=== PATIENT | male | born 1940 | race Caucasian/White ===

== ENCOUNTER 2021-04-17 13:53 | Emergency (ER) | payer MEDICARE, BC ==
[2021-04-17 15:00] VITALS: BP 153/57; PULSE 61
== END 2021-04-17 17:29 | disposition home or self-care (01) ==
LOC: JP.ED 13:53
DX: S80.01XA Contusion of right knee, initial encounter (principal); I25.10 Atherosclerotic heart disease of native coronary artery without angina pectoris; E78.00 Pure hypercholesterolemia, unspecified; I10 Essential (primary) hypertension; I25.2 Old myocardial infarction; K21.9 Gastro-esophageal reflux disease without esophagitis; E11.9 Type 2 diabetes mellitus without complications; E66.9 Obesity, unspecified; Z68.41 Body mass index [BMI] 40.0-44.9, adult; Z88.1 Allergy status to other antibiotic agents; Z88.8 Allergy status to other drugs, medicaments and biological substances; Z79.82 Long term (current) use of aspirin; Z79.899 Other long term (current) drug therapy; W22.09XA Striking against other stationary object, initial encounter
CPT/HCPCS: 73562-26-RT; 73562-RT; 99282; 99283

== ENCOUNTER 2021-07-03 22:58 | Emergency (ER) | payer MEDICARE, BC ==
[2021-07-04 00:14] VITALS: BP 128/51; PULSE 73
== END 2021-07-04 00:50 | disposition home or self-care (01) ==
LOC: JP.ED 22:58
DX: E11.649 Type 2 diabetes mellitus with hypoglycemia without coma (principal); I25.10 Atherosclerotic heart disease of native coronary artery without angina pectoris; I25.2 Old myocardial infarction; E78.00 Pure hypercholesterolemia, unspecified; J45.909 Unspecified asthma, uncomplicated; I10 Essential (primary) hypertension; E66.9 Obesity, unspecified; Z68.39 Body mass index [BMI] 39.0-39.9, adult; Z79.899 Other long term (current) drug therapy; Z79.82 Long term (current) use of aspirin; Z79.4 Long term (current) use of insulin; Z88.8 Allergy status to other drugs, medicaments and biological substances; Z88.1 Allergy status to other antibiotic agents
CPT/HCPCS: 82947; 99282; 99285

== ENCOUNTER 2021-07-20 18:19 | Emergency (ER) | payer MEDICARE, BC ==
[2021-07-20 18:35] VITALS: BP 144/42; PULSE 56
== END 2021-07-20 20:26 | disposition home or self-care (01) ==
LOC: JP.ED 18:19
DX: E87.5 Hyperkalemia (principal); I12.9 Hypertensive chronic kidney disease with stage 1 through stage 4 chronic kidney disease, or unspecified chronic kidney disease; N18.4 Chronic kidney disease, stage 4 (severe); I25.10 Atherosclerotic heart disease of native coronary artery without angina pectoris; I25.2 Old myocardial infarction; E78.00 Pure hypercholesterolemia, unspecified; I10 Essential (primary) hypertension; E11.9 Type 2 diabetes mellitus without complications; E66.9 Obesity, unspecified; Z68.41 Body mass index [BMI] 40.0-44.9, adult; Z79.899 Other long term (current) drug therapy; Z79.82 Long term (current) use of aspirin; Z79.4 Long term (current) use of insulin; Z88.8 Allergy status to other drugs, medicaments and biological substances; Z88.1 Allergy status to other antibiotic agents
CPT/HCPCS: 36415; 80048; 99283; 99284

== ENCOUNTER 2021-10-05 01:05 | Emergency (ER) | payer MEDICARE, BC ==
[2021-10-05] MEDS ORDERED: 50% Dextrose in Water 50 ML Syringe IVPUSH ONE ×3 (01:07→04:19)
[2021-10-05] MEDS ORDERED: Sodium Chloride 0.9% 1,000 ML IV SCH (01:30)
[2021-10-05 01:38] LABS: ESTIMATED GFR 25 mL/min (>60)
[2021-10-05] MEDS ORDERED: Sodium Chloride 23.4% 154 MEQ in Dextrose 10% in Water 1,000 ML IV SCH ×2 (02:00)
[2021-10-05] MEDS ORDERED: 50% Dextrose in Water 50 ML Syringe ONE (02:02)
[2021-10-05] MEDS ORDERED: Dextrose 5%-0.9% NaCl 1,000 ML IV SCH (02:30)
[2021-10-05 04:54] VITALS: BP 174/67; PULSE 67
[2021-10-05] MEDS ORDERED: HYDROmorphone 0.5 MG/0.5 ML Syringe IVPUSH ONE (05:27)
[2021-10-05] MEDS ORDERED: Lidocaine 4% Top Soln 50 ML Bottle TOP ONE (06:10)
[2021-10-05] MEDS ORDERED: Bacitracin Oint 1 GM U/D Packet TOP ONE (06:10)
[2021-10-05] MEDS ORDERED: Lidocaine 4% 5 ML Amp INJECT ONE (06:16)
[2021-10-05] MEDS ORDERED: Lidocaine 1% 20 ML MDV INJECT ONE (06:19)
[2021-10-05] MEDS ORDERED: Lidocaine 1% 5 ML VIAL ONE (06:26)
== END 2021-10-05 07:02 | disposition home or self-care (01) ==
LOC: JP.ED 01:05
DX: S01.111A Laceration without foreign body of right eyelid and periocular area, initial encounter (principal); E11.649 Type 2 diabetes mellitus with hypoglycemia without coma; I25.10 Atherosclerotic heart disease of native coronary artery without angina pectoris; E78.00 Pure hypercholesterolemia, unspecified; E66.9 Obesity, unspecified; I25.2 Old myocardial infarction; I10 Essential (primary) hypertension; Z88.1 Allergy status to other antibiotic agents; Z88.8 Allergy status to other drugs, medicaments and biological substances; Z79.82 Long term (current) use of aspirin; Z68.38 Body mass index [BMI] 38.0-38.9, adult; W19.XXXA Unspecified fall, initial encounter
CPT/HCPCS: 36415; 70450; 70486; 71046; 80053; 82947; 84484; 85025; 93005; 96361; 96374; 96375; 96376; 99285; J1170; J7030

== ENCOUNTER 2022-11-26 10:46 | Inpatient (IN) | payer MEDICARE, BC ==
[2022-11-26] MEDS ORDERED: Glucagon,Human Recombinant 1 MG Vial IM PRN (12:11)
[2022-11-26] MEDS ORDERED: 50% Dextrose in Water 50 ML Syringe IVPUSH PRN (12:11)
[2022-11-26] MEDS ORDERED: Albuterol 0.083% 2.5 MG/3 ML Neb Soln NEB PRN (12:11)
[2022-11-26] MEDS ORDERED: Ondansetron 4 MG/2 ML SDV IV PRN (12:15)
[2022-11-26] MEDS ORDERED: Acetaminophen 325 MG Tab PO PRN (12:15)
[2022-11-26] MEDS ORDERED: Sodium Chloride 0.9% 10 ML Syringe FLUSH PRN (12:15)
[2022-11-26] MEDS ORDERED: Glucose Gel 15 GM in 37.5 GM Tube PO PRN (12:15)
[2022-11-26] MEDS ORDERED: 50% Dextrose in Water 50 ML Syringe IV PRN (12:15)
[2022-11-26] MEDS ORDERED: Polyethylene Glycol 3350 Powder 17 GM Packet PO PRN (12:15)
[2022-11-26] MEDS ORDERED: Piperacillin/Tazobactam/Dext 2.25 GM in Premix Bag 1 BAG IV SCH (12:30)
[2022-11-26] MEDS ORDERED: Piperacillin/Tazobactam 2.25 GM in Sodium Chloride 0.9% 50 ML IV SCH (12:30)
[2022-11-26 12:43] LABS: BASOPHILS PERCENT AUTO 0.4 % (0.1-1.3); EOSINOPHILS ABSOLUTE AUTO 0.13 K/uL (0.00-0.40); EOSINOPHILS PERCENT AUTO 2.6 % (0.0-5.4); HEMATOCRIT 31.6 % (38.4-49.7); HEMOGLOBIN 10.6 g/dL (12.9-16.9); IMMATURE GRAN PERCENT AUTO 0.2 % (0.0-0.7); LYMPHOCYTES ABSOLUTE AUTO 1.26 K/uL (0.8-3.3); LYMPHOCYTES PERCENT AUTO 24.9 % (11.4-47.7); MEAN CORPUSCULAR HEMOGLOBIN 32.8 pg (31.6-35.5); MEAN CORPUSCULAR HGB CONC 33.5 g/dL (31.6-35.5); MEAN CORPUSCULAR VOLUME 97.8 fL (81.4-99.0); MONOCYTES ABSOLUTE AUTO 0.43 K/uL (0.20-0.90); MONOCYTES PERCENT AUTO 8.5 % (3.3-12.6); NEUTROPHILS ABSOLUTE AUTO 3.21 K/uL (1.0-7.6); NEUTROPHILS PERCENT AUTO 63.4 % (40.0-78.1); PLATELET COUNT,PLT 114 K/uL (130-375); RED BLOOD CELL COUNT 3.23 M/uL (4.14-5.76); WHITE BLOOD CELL COUNT,WBC 5.1 K/uL (3.2-11.0)
[2022-11-26 12:47] LABS: BASOPHILS ABSOLUTE AUTO 0.02 K/uL (0.00-0.10); IMMATURE GRAN ABSOLUTE AUTO 0.01 K/uL (0.00-0.23)
[2022-11-26] MEDS ORDERED: Vancomycin 1 GM SDV IV SCH (13:00)
[2022-11-26 13:05] LABS: A/G RATIO 1.1 (1.2-2.2); ALANINE AMINOTRANSFERASE,ALT 20 U/L (12-78); ALBUMIN 3.1 g/dL (3.4-5.0); ALKALINE PHOSPHATASE 91 U/L (46-116); ASPARTATE AMNIOTRANSFERASE,AST 17 U/L (15-37); BILIRUBIN TOTAL 1.2 mg/dL (0.2-1.0); BLOOD UREA NITROGEN,BUN 61 mg/dL (7-18); C-REACTIVE PROTEIN 0.46 mg/dL (0.0-0.3); CARBON DIOXIDE,CO2 26 mmol/L (21-32); CHLORIDE,CL 105 mmol/L (100-108); ESTIMATED GFR 14 mL/min (>60); GLUCOSE RANDOM 222 mg/dL (74-106); MAGNESIUM 2.2 mg/dL (1.8-2.4); POTASSIUM,K 5.4 mmol/L (3.6-5.2); PROTEIN TOTAL,TP 5.9 g/dL (6.4-8.2); SODIUM,NA 140 mmol/L (140-148)
[2022-11-26 13:08] LABS: ANION GAP 14.4 mmol/L (5.0-14.0)
[2022-11-26] MEDS: oxyCODONE 5 MG Tab PO PRN ×2 (13:24→19:34)
[2022-11-26] MEDS ORDERED: Vancomycin 2 GM in Sodium Chloride 0.9% 500 ML IV ONE (14:00)
[2022-11-26] MEDS: Enoxaparin 30 MG/0.3 ML Syringe SUBCUT SCH (14:29)
[2022-11-26] MEDS: Nystatin Topical Powder 15 GM Bottle TOP SCH ×2 (17:01→21:17)
[2022-11-26] MEDS: Insulin Lispro 100 Unit/ML 3 ML KwikPen SUBCUT SCH ×2 (17:02→21:13)
[2022-11-26] MEDS: Piperacillin/Tazobactam/Dext 2.25 GM in Premix Bag 1 BAG IV SCH (19:39)
[2022-11-26] MEDS: Furosemide 40 MG Tab PO SCH (20:44)
[2022-11-26] MEDS: SALMETEROL INH SCH (20:46)
[2022-11-26] MEDS: FLUTICASONE INH SCH (20:46)
[2022-11-26] MEDS: TERBINAFINE 1% TOP SCH (20:47)
[2022-11-26] MEDS: Isosorbide Mononitrate 30 MG Tab.ER PO SCH (20:49)
[2022-11-26] MEDS: Aspirin 81 MG Tab.EC PO SCH (20:49)
[2022-11-26] MEDS: Allopurinol 100 MG Tab PO SCH (20:49)
[2022-11-26] MEDS: Doxazosin 4 MG Tab PO SCH (20:53)
[2022-11-26] MEDS: Carvedilol 12.5 MG Tab PO SCH (20:53)
[2022-11-26] MEDS: COLESTIPOL 1 GM PO SCH (20:54)
[2022-11-26] MEDS ORDERED: Insulin Glargine,Human Rec. Analog 100 Units/ML 3 ML Pen SUBCUT SCH (21:00)
[2022-11-26] MEDS ORDERED: COLESTIPOL HCL PO SCH (21:00)
[2022-11-26] MEDS ORDERED: TERBINAFINE SCH (21:00)
[2022-11-26] MEDS ORDERED: DOXAZOSIN MESYLATE 8 MG PO SCH (21:00)
[2022-11-26] MEDS ORDERED: FLUTICASONE PROPION INH SCH (21:00)
[2022-11-26] MEDS ORDERED: Furosemide 20 MG Tab PO SCH (21:00)
[2022-11-26] MEDS ORDERED: Allopurinol 100 MG Tab PO SCH (21:00)
[2022-11-26] MEDS ORDERED: [UNRECOGNIZED DRUG - OTHER] INH SCH (21:00)
[2022-11-26] MEDS ORDERED: Non-Formulary Medication 1 Each (Allopurinol [Zyloprim] 300 MG Tablet) PO SCH (21:00)
[2022-11-26] MEDS ORDERED: SALMETEROL INH SCH (21:00)
[2022-11-26] MEDS ORDERED: Non-Formulary Medication 1 Each (Carvedilol [Carvedilol] 25 MG Tablet) PO SCH (21:00)
[2022-11-26] MEDS: Insulin Glargine,Human Rec. Analog 100 Units/ML 3 ML Pen SUBCUT SCH (21:15)
[2022-11-27] MEDS: Piperacillin/Tazobactam/Dext 2.25 GM in Premix Bag 1 BAG IV SCH ×4 (02:02→23:07)
[2022-11-27] MEDS: oxyCODONE 5 MG Tab PO PRN ×2 (03:02→16:56)
[2022-11-27] MEDS: Nystatin Topical Powder 15 GM Bottle TOP SCH ×4 (06:22→21:56)
[2022-11-27] MEDS: Insulin Lispro 100 Unit/ML 3 ML KwikPen SUBCUT SCH ×4 (07:52→21:45)
[2022-11-27] MEDS: Doxazosin 4 MG Tab PO SCH ×2 (08:12→21:48)
[2022-11-27] MEDS: Carvedilol 12.5 MG Tab PO SCH ×2 (08:13→21:51)
[2022-11-27] MEDS: Aspirin 81 MG Tab.EC PO SCH ×2 (08:14→21:48)
[2022-11-27] MEDS: Isosorbide Mononitrate 30 MG Tab.ER PO SCH ×2 (08:14→21:53)
[2022-11-27] MEDS: Insulin Glargine,Human Rec. Analog 100 Units/ML 3 ML Pen SUBCUT SCH ×2 (08:16→21:46)
[2022-11-27] MEDS: Furosemide 40 MG Tab PO SCH ×2 (08:19→20:19)
[2022-11-27] MEDS: Magnesium Oxide 400 MG Tab PO SCH (08:20)
[2022-11-27] MEDS: COLESTIPOL 1 GM PO SCH ×2 (08:20→21:44)
[2022-11-27] MEDS: atorvaSTATin 20 MG Tab PO SCH (08:20)
[2022-11-27] MEDS: Ezetimibe 10 MG Tab PO SCH (08:22)
[2022-11-27] MEDS: TERBINAFINE 1% TOP SCH ×2 (08:22→21:47)
[2022-11-27] MEDS ORDERED: Non-Formulary Medication 1 Each (Atorvastatin Calcium [Lipitor] 40 MG Tablet) PO SCH (09:00)
[2022-11-27] MEDS ORDERED: Non-Formulary Medication 1 Each (Magnesium Oxide [Magnesium Oxide] 400 MG Tablet) PO SCH (09:00)
[2022-11-27 13:19] LABS: ANION GAP 7.2 mmol/L (5.0-14.0); CALCIUM 8.1 mg/dL (8.5-10.1); EST CRCL DRUG DOSING (CG) 14.7 mL/min
[2022-11-27] MEDS: Enoxaparin 30 MG/0.3 ML Syringe SUBCUT SCH (13:52)
[2022-11-27] MEDS: SALMETEROL INH SCH (21:44)
[2022-11-27] MEDS: FLUTICASONE INH SCH (21:44)
[2022-11-27] MEDS: Allopurinol 100 MG Tab PO SCH (21:48)
[2022-11-28] MEDS: Nystatin Topical Powder 15 GM Bottle TOP SCH ×2 (05:38→09:15)
[2022-11-28] MEDS: Insulin Lispro 100 Unit/ML 3 ML KwikPen SUBCUT SCH ×2 (07:44→12:08)
[2022-11-28] MEDS: Doxazosin 4 MG Tab PO SCH (08:26)
[2022-11-28] MEDS: Carvedilol 12.5 MG Tab PO SCH (08:32)
[2022-11-28] MEDS: Isosorbide Mononitrate 30 MG Tab.ER PO SCH (08:33)
[2022-11-28] MEDS: Aspirin 81 MG Tab.EC PO SCH (08:33)
[2022-11-28] MEDS: Furosemide 40 MG Tab PO SCH (08:34)
[2022-11-28] MEDS: atorvaSTATin 20 MG Tab PO SCH (08:35)
[2022-11-28] MEDS: Magnesium Oxide 400 MG Tab PO SCH (08:35)
[2022-11-28] MEDS: COLESTIPOL 1 GM PO SCH (08:35)
[2022-11-28] MEDS: Ezetimibe 10 MG Tab PO SCH (08:36)
[2022-11-28] MEDS: Piperacillin/Tazobactam/Dext 2.25 GM in Premix Bag 1 BAG IV SCH (09:06)
[2022-11-28] MEDS: TERBINAFINE 1% TOP SCH (09:18)
[2022-11-28] MEDS: oxyCODONE 5 MG Tab PO PRN (09:27)
[2022-11-28] MEDS: Insulin Glargine,Human Rec. Analog 100 Units/ML 3 ML Pen SUBCUT SCH (09:41)
[2022-11-28 11:15] VITALS: BP 143/62; PULSE 49
== END 2022-11-28 13:10 | disposition home or self-care (01) | DRG 607 ==
LOC: JP.MS 10:46
PROVIDERS: ADMIT Hospitalist; ATTEND Hospitalist
DX: B37.2 Candidiasis of skin and nail (principal); N18.5 Chronic kidney disease, stage 5; I12.0 Hypertensive chronic kidney disease with stage 5 chronic kidney disease or end stage renal disease; N49.2 Inflammatory disorders of scrotum; E11.22 Type 2 diabetes mellitus with diabetic chronic kidney disease; I25.2 Old myocardial infarction; I25.10 Atherosclerotic heart disease of native coronary artery without angina pectoris; E78.00 Pure hypercholesterolemia, unspecified; K21.9 Gastro-esophageal reflux disease without esophagitis; J45.909 Unspecified asthma, uncomplicated; G47.30 Sleep apnea, unspecified; E66.9 Obesity, unspecified; M19.90 Unspecified osteoarthritis, unspecified site; Z88.0 Allergy status to penicillin; Z88.8 Allergy status to other drugs, medicaments and biological substances; Z79.82 Long term (current) use of aspirin; Z79.4 Long term (current) use of insulin; Z79.899 Other long term (current) drug therapy; Z90.49 Acquired absence of other specified parts of digestive tract; Z98.890 Other specified postprocedural states; Z96.659 Presence of unspecified artificial knee joint; Z87.891 Personal history of nicotine dependence; Z68.36 Body mass index [BMI] 36.0-36.9, adult
CPT/HCPCS: 36415; 80048; 80053; 80202; 82947; 83735; 85025; 86140; 87040; 99222; 99232; 99238; A9270-GY; J1650; J1815; J1815-GY; J2543; J3370; J3490; J7040; J7050; U0002

== ENCOUNTER 2023-05-31 08:48 | Emergency (ER) | payer MEDICARE, BC ==
[2023-05-31 09:06] VITALS: PULSE 56
[2023-05-31 12:03] VITALS: BP 136/69
== END 2023-05-31 13:46 | disposition home or self-care (01) ==
LOC: JP.ED 08:48
DX: L03.115 Cellulitis of right lower limb (principal); I25.10 Atherosclerotic heart disease of native coronary artery without angina pectoris; E78.00 Pure hypercholesterolemia, unspecified; I13.0 Hypertensive heart and chronic kidney disease with heart failure and stage 1 through stage 4 chronic kidney disease, or unspecified chronic kidney disease; N18.9 Chronic kidney disease, unspecified; I50.9 Heart failure, unspecified; I25.2 Old myocardial infarction; J45.909 Unspecified asthma, uncomplicated; K21.9 Gastro-esophageal reflux disease without esophagitis; E11.22 Type 2 diabetes mellitus with diabetic chronic kidney disease; Z88.0 Allergy status to penicillin; Z88.1 Allergy status to other antibiotic agents; Z79.82 Long term (current) use of aspirin; Z99.2 Dependence on renal dialysis; Z86.19 Personal history of other infectious and parasitic diseases; Z79.4 Long term (current) use of insulin; Z79.899 Other long term (current) drug therapy; Z87.891 Personal history of nicotine dependence; Z79.51 Long term (current) use of inhaled steroids
CPT/HCPCS: 93971-RT; 99283